=== PATIENT | male | born 1960 | race Caucasian/White ===

== ENCOUNTER 2021-12-22 11:57 | Day surgery (SDC) | payer BC ==
[~2021-12-22] VITALS: Ht 185.4 cm; Wt 115.5 kg
[~2021-12-22 11:57] MED LIST: Aspir 8181 MG PO; LATUDA60 MG; LOTREL 10-20 M1 EACH PO; Omeprazole20 M1
--- NOTE | 2021-12-22 14:09 | NUR ---
12/22/21 1409 Judy Wan IV GOT DISLODGED BY PT IN ENDO ROOM, RESTARTED BY MA IN RIGHT UPPER ARM. OTHER IV DC'D IN ROOM.
== END 2021-12-22 15:05 | disposition home or self-care (01) ==
LOC: ORSCSDS 11:57
PROVIDERS: Internal Medicine Gastroenterology
PROC: 0DBN8ZX Excision of Sigmoid Colon, Via Natural or Artificial Opening Endoscopic, Diagnostic (ICD-10-PCS; principal; 2021-12-22 13:30)
PROC: 0DBH8ZX Excision of Cecum, Via Natural or Artificial Opening Endoscopic, Diagnostic (ICD-10-PCS; principal; 2021-12-22 13:30)
PROC: 0DBM8ZX Excision of Descending Colon, Via Natural or Artificial Opening Endoscopic, Diagnostic (ICD-10-PCS; principal; 2021-12-22 13:30)
DX: Z12.11 Encounter for screening for malignant neoplasm of colon (principal); Z86.010 Personal history of colon polyps; D12.0 Benign neoplasm of cecum; K57.30 Diverticulosis of large intestine without perforation or abscess without bleeding; K63.89 Other specified diseases of intestine; G47.33 Obstructive sleep apnea (adult) (pediatric); F17.220 Nicotine dependence, chewing tobacco, uncomplicated; Z79.899 Other long term (current) drug therapy; E66.9 Obesity, unspecified; Z68.34 Body mass index [BMI] 34.0-34.9, adult
CPT/HCPCS: 88305; J0330; J0461; J2405; J2704; J7120